=== PATIENT | female | born 1935 | race Two or more races ===

== ENCOUNTER 2017-09-02 06:07 | Day surgery (SDC) | payer OTHER ==
[~2017-09-02 06:07] MED LIST: ACID CONTROLLER20 MG PO; ASA81 MG PO; ATORVASTATIN CA10 MG PO; AZOR 5-40 MG T1 EACH PO; CALTRATE 600+D1 EACH PO; GABAPENTIN100 MG PO; HYDROCHLOROTHIA25 MG PO; ISOSORBIDE DINI30 MG PO; LATANOPROST2.5 ML OP; LEVO-T50 MCG PO; MONTELUKAST SOD10 MG PO; NIACIN500 M1 PO; PROTONIX40 MG PO; SYMBICORT 16010.2 GM IH; TRADJENTA5 MG PO; ZANAFLEX4 MG PO; [UNRECOGNIZED DRUG - OTHER] PO
== END 2017-09-02 10:20 | disposition home or self-care (01) ==
LOC: CIR.AMB 06:07
DX: R15.9 Full incontinence of feces (principal)
CPT/HCPCS: 64581; C1778